=== PATIENT | female | born 1985 | race African-American/Black ===

== ENCOUNTER 2018-10-31 05:30 | Inpatient (IN) | payer BC ==
[2018-10-31] MEDS ORDERED: Lactated Ringer's 1,000 ML IV SCH (09:30)
[2018-10-31] MEDS ORDERED: Lidocaine 1% (PF) 30 ML VIAL SC PRN (09:30)
[2018-10-31] MEDS ORDERED: NS / Oxytocin 40 units/1000ml 1,000 ML IV PRN (09:30)
[2018-10-31] MEDS ORDERED: HYDROcodone/Acetaminophen 5/325 mg Tablet PO PRN ×4 (09:30→21:36)
[2018-10-31] MEDS ORDERED: Butorphanol Tartrate 1 MG/ML VIAL SLOW IVP PRN (09:30)
[2018-10-31] MEDS ORDERED: Promethazine HCl 25 MG/ML VIAL IM PRN ×3 (09:30→21:36)
[2018-10-31] MEDS ORDERED: Ibuprofen 800 MG TAB PO PRN (09:30)
[2018-10-31] MEDS ORDERED: Ondansetron PF 4 MG/2 ML Vial IVP PRN ×3 (09:30→21:36)
[2018-10-31 09:53] LABS: Hemoglobin 11.4 g/dL (12.0-16.0); Mean Corpuscular HGB CONC 32.4 g/dL (32.0-36.0); Mean Corpuscular Hemoglobin 22.6 pg (27.0-31.0); Mean Corpuscular Volume 69.9 fL (78.0-98.0); Mean Platelet Volume 9.6 fL (7.4-10.4); Platelet Count 255 thou/uL (130-400); RBC Distribution Width 16.7 % (11.5-14.5); Red Blood Cell (RBC) Count 5.02 mill/uL (4.20-5.40); White Blood Cell (WBC) Count 7.5 thou/uL (4.8-10.8)
[2018-10-31 10:28] LABS: HBSAg Index 0.22 S/CO (0-0.99); Hep B Surf Ag Non-Reactive S/CO (NonReactive); Syphilis Antibody Nonreactive (Nonreactive); Syphilis Antibody Index 0.03 S/CO (<1.00 Non-Reactive)
[2018-10-31] MEDS: Lactated Ringer's 1,000 ML IV SCH (10:30)
[2018-10-31] MEDS: NS w/ Oxytocin 10 units 500 ML IV SCH (10:45)
[2018-10-31] MEDS ORDERED: NS w/ Oxytocin 10 units 500 ML ONE (10:54)
[2018-10-31] MEDS ORDERED: Fentanyl 4 mcg/Bup 0.1% Cadd 100 ML ONE (14:42)
[2018-10-31] MEDS ORDERED: diphenhydrAMINE 50 MG/ML VIAL IVP PRN (14:52)
[2018-10-31] MEDS ORDERED: Lactated Ringer's 500 ML IV PRN (14:52)
[2018-10-31] MEDS ORDERED: Acetaminophen 325 MG TAB PO PRN (14:52)
[2018-10-31] MEDS ORDERED: ePHEDrine/0.9% NaCl/PF SYRINGE 50 mg/10 ml SLOW IVP PRN (14:52)
[2018-10-31] MEDS ORDERED: Eucerin (Mineral Oil/Petrolatum,White) 30 gm Jar TOP PRN (14:52)
[2018-10-31] MEDS ORDERED: Naloxone HCl 0.4 mg/ml Vial IVP PRN ×2 (14:52)
[2018-10-31] MEDS ORDERED: Communication Order-Pharmacy FS SCH (15:00)
[2018-10-31] MEDS ORDERED: Bupivacaine 0.25% HCL 30 ML VIAL ONE (15:00)
[2018-10-31] MEDS ORDERED: Fentanyl 4 mcg/Bupivacaine 0.1% Cassette 100 ML EPIDURAL SCH (15:00)
[2018-10-31] MEDS ORDERED: NS / Oxytocin 40 units/1000ml 1,000 ML ONE (16:05)
[2018-10-31] MEDS ORDERED: Lidocaine 1% (PF) 30 ML VIAL ONE (16:05)
[2018-10-31] MEDS ORDERED: diphenhydrAMINE 25 MG CAP PO PRN (21:36)
[2018-10-31] MEDS ORDERED: Bisacodyl 10 MG SUPP PR PRN (21:36)
[2018-10-31] MEDS ORDERED: Milk Of Magnesia 30 ML UDCUP PO PRN (21:36)
[2018-10-31] MEDS ORDERED: Adacel (T-DAP) 0.5 ML SYRINGE IM ONE (21:36)
[2018-10-31] MEDS ORDERED: Preparation H Ointment 28 GM TUBE PR PRN (21:36)
[2018-10-31] MEDS ORDERED: Zolpidem Tartrate 5 MG TAB PO PRN (21:36)
[2018-10-31] MEDS ORDERED: NS / Oxytocin 40 units/1000ml 1,000 ML IV SCH (21:36)
[2018-10-31] MEDS ORDERED: Lanolin Ointment 7 GM TUBE TOP PRN (21:36)
[2018-11-01] MEDS: Lactated Ringer's 1,000 ML IV SCH ×5 (00:44→22:31)
[2018-11-01] MEDS: Ibuprofen 800 MG TAB PO SCH ×4 (00:44→21:05)
[2018-11-01] MEDS: Docusate Calcium (SURFAK) 240 MG CAP PO SCH ×3 (00:44→21:05)
[2018-11-01 06:21] LABS: Glucose 91 mg/dL (70-105)
[2018-11-01] MEDS: Ferrous Sulfate 325 MG TAB PO SCH ×2 (08:48→17:09)
[2018-11-01] MEDS: Prenatal Vitamin 1 TAB PO SCH (08:53)
[2018-11-01] MEDS: NS w/ Oxytocin 10 units 500 ML IV SCH (09:54)
[2018-11-02] MEDS: Ibuprofen 800 MG TAB PO SCH (05:44)
[2018-11-02 08:13] VITALS: BP 102/55; TEMP 98.1
[2018-11-02] MEDS: Ferrous Sulfate 325 MG TAB PO SCH (08:18)
[2018-11-02] MEDS: Prenatal Vitamin 1 TAB PO SCH (08:19)
[2018-11-02] MEDS: Docusate Calcium (SURFAK) 240 MG CAP PO SCH (08:19)
[2018-11-02] MEDS: Lactated Ringer's 1,000 ML IV SCH (08:20)
[2018-11-02] MEDS: NS w/ Oxytocin 10 units 500 ML IV SCH (08:20)
== END 2018-11-02 14:00 | disposition home or self-care (01) | DRG 807 ==
LOC: L&D 07:38 → EDUNIT# 07:38 → 3SW 11-01 00:24
PROVIDERS: ADMIT Obstetrics & Gynecology; ATTEND Obstetrics & Gynecology
PROC: 10E0XZZ Delivery of Products of Conception, External Approach (ICD-10-PCS; principal; 2018-10-31)
DX: O24.425 Gestational diabetes mellitus in childbirth, controlled by oral hypoglycemic drugs (principal); Z37.0 Single live birth; Z3A.38 38 weeks gestation of pregnancy; Z79.84 Long term (current) use of oral hypoglycemic drugs
CPT/HCPCS: 36415; 51702; 82947; 85027; 86780; 86850; 86900; 86901; 87340; J2001; S0020